=== PATIENT | male | born 1990 | race Caucasian/White ===

== ENCOUNTER 2017-06-25 17:16 | Observation (INO) | payer MEDICAID ==
[~2017-06-25] VITALS: Ht 182.9 cm; Wt 85.8 kg
[~2017-06-25 17:16] MED LIST: CARA1TAB2 PO; CHLO25CA PO; OMEP20CA5 PO; ZOFR4TAB3 SL
[2017-06-25] MEDS ORDERED: SODIUM CHLOR 0.9% 1000 ML INJ 1,000 ML IV SCH ×2 (17:26→20:15)
[2017-06-25] MEDS ORDERED: MORPHINE SULFATE 4 MG/ML INJ IV PUSH ONE ×2 (17:30→20:15)
[2017-06-25] MEDS ORDERED: ONDANSETRON HCL 4 MG/2 ML VIAL IVP ONE (17:30)
[2017-06-25] MEDS ORDERED: SODIUM CHLORIDE 0.9% FLUSH 10 ML FLUSH IV FLUSH PRN ×2 (17:30→20:30)
--- NOTE | 2017-06-25 17:31 | PD ---
HPI Chief Complaint: Abdominal pain Time Seen by Provider: 17:21 Travel History International Travel<30 days: No Contact w/Intl Traveler<30days: No Traveled to known affect area: No History of Present Illness HPI This patient complains of abdominal pain. Location is epigastrium. It started when he woke up this morning. Gradually worsened throughout the day. Duration is one day. He reports that he used to be a very heavy alcohol drinker but quit 2 weeks ago. No fall or injury. Denies fever or cough or shortness of breath. Symptoms are severe. No alleviating factors. No exacerbating factors. No abdominal surgeries. He denies medical history. PFSH Past Medical History Diminished Hearing: No Social History Alcohol Use: Yes (EVERY DAY) Tobacco Use: No Allergies-Medications (Allergen,Severity, Reaction): Coded Allergies: No Known Allergies (Verified , 06/19/13) Reported Meds & Prescriptions Reported Meds & Active Scripts Active No Active Prescriptions or Reported Medications Review of Systems General / Constitutional: No: Fever Eyes: No: Visual changes HENT: No: Headaches Cardiovascular: Positive: Tachycardia, No: Palpitations Respiratory: No: Shortness of Breath Gastrointestinal: Positive: Nausea, Abdominal Pain Genitourinary: No: Dysuria Musculoskeletal: No: Pain Skin: No Rash Neurologic: No: Weakness Psychiatric: No: Depression Endocrine: No: Polydipsia Hematologic/Lymphatic: No: Easy Bruising Physical Exam Narrative GENERAL: Well-nourished, well-developed patient with epigastric pain SKIN: Focused skin assessment reveals no rash and nodules. Skin is Warm and dry. HEAD: Atraumatic. Normocephalic. EYES: Pupils equal and round. No scleral icterus. No injection or drainage. ENT: No nasal bleeding or discharge. Mucous membranes pink and moist. NECK: Trachea midline. No JVD. CARDIOVASCULAR: Regular rate and rhythm. No murmur appreciated. RESPIRATORY: No accessory muscle use. Clear to auscultation. Breath sounds equal bilaterally. GASTROINTESTINAL: Abdomen soft, epigastrium is tender without rebound or guarding. Hepatic and splenic margins not palpable. MUSCULOSKELETAL: No obvious deformities. No clubbing. No cyanosis. No edema. NEUROLOGICAL: Awake and alert. No obvious cranial nerve deficits. Motor grossly within normal limits. Normal speech. PSYCHIATRIC: Appropriate mood and affect; insight and judgment normal. Data Data Last Documented VS Vital Signs Date Time Temp Pulse Resp B/P (MAP) Pulse Ox O2 Delivery O2 Flow Rate FiO2 06/25/17:18 86 16 144/66 (92) 100 Room Air 06/25/17 17:40 98.5 Orders Orders Complete Blood Count With Diff (06/25/17:) Comprehensive Metabolic Panel (06/25/17:) Lipase (06/25/17:) Prothrombin Time / Inr (Pt) (06/25/17:) Act Partial Throm Time (Ptt) (06/25/17:) Ct Abd/Pel W Iv Contrast(Rout) (06/25/17:) Iv Access Insert/Monitor (06/25/17) Ecg Monitoring (06/25/17) Oximetry (06/25/17:) NPO (06/25/17:) Morphine Inj (Morphine Inj) (06/25/17:30) Ondansetron Inj (Zofran Inj) (06/25/17:30) Sodium Chlor 0.9% 1000 Ml Inj (Ns 1000 M (06/25/17:) Sodium Chloride 0.9% Flush (Ns Flush) (06/25/17:30) Electrocardiogram (06/25/17:) Abdomen, Upright Only (06/25/17:) Chest, Single Ap (06/25/17:26) Alcohol (Ethanol) (06/25/17:26) Labs Laboratory Tests Test 06/25/17 17:32 White Blood Count 16.3 TH/MM3 Red Blood Count 5.58 MIL/MM3 Hemoglobin 16.1 GM/DL Hematocrit 47.2 % Mean Corpuscular Volume 84.6 FL Mean Corpuscular Hemoglobin 28.8 PG Mean Corpuscular Hemoglobin Concent 34.1 % Red Cell Distribution Width 12.1 % Platelet Count 275 TH/MM3 Mean Platelet Volume 8.0 FL Neutrophils (%) (Auto) 73.5 % Lymphocytes (%) (Auto) 14.3 % Monocytes (%) (Auto) 8.0 % Eosinophils (%) (Auto) 1.7 % Basophils (%) (Auto) 2.5 % Neutrophils # (Auto) 12.0 TH/MM3 Lymphocytes # (Auto) 2.3 TH/MM3 Monocytes # (Auto) 1.3 TH/MM3 Eosinophils # (Auto) 0.3 TH/MM3 Basophils # (Auto) 0.4 TH/MM3 CBC Comment DIFF FINAL Differential Comment Prothrombin Time 10.1 SEC Prothromb Time International Ratio 1.0 RATIO Activated Partial Thromboplast Time 23.3 SEC Blood Urea Nitrogen 11 MG/DL Creatinine 1.20 MG/DL Random Glucose 111 MG/DL Total Protein 8.5 GM/DL Albumin 4.1 GM/DL Calcium Level 9.3 MG/DL Alkaline Phosphatase 81 U/L Aspartate Amino Transf (AST/SGOT) 17 U/L Alanine Aminotransferase (ALT/SGPT) 28 U/L Total Bilirubin 0.8 MG/DL Sodium Level 137 MEQ/L Potassium Level 3.0 MEQ/L Chloride Level 102 MEQ/L Carbon Dioxide Level 21.8 MEQ/L Anion Gap 13 MEQ/L Estimat Glomerular Filtration Rate 73 ML/MIN Lipase 474 U/L Ethyl Alcohol Level LESS THAN 3 MG/DL MDM Medical Decision Making Medical Screen Exam Complete: Yes Emergency Medical Condition: Yes Medical Record Reviewed: Yes Differential Diagnosis Peptic ulcer disease, pancreatitis, perforated viscus, cholecystitis Narrative Course I have reviewed the patient's electronic medical record. IV placed and IV fluids started as well as Zofran and morphine for symptom relief I have ordered upright abdominal film and chest x-ray to evaluate for free air under the diaphragm Labs and CT ordered CBC shows leukocytosis of 16,000 Is hypokalemic at 3.0 Lipase is 474 Alcohol is negative I am awaiting CT of abdomen and pelvis. This will be crucial to determining disposition. We will have Dr. Whitfield check this and assist with disposition Diagnosis Primary Impression: Epigastric pain Scripts No Active Prescriptions or Reported Meds Yasmani Sanchez MD Jun 25, 2017 17:31
[2017-06-25 17:40] VITALS: BP 137/85; PULSE 114; RESP 22; TEMP 98.5; O2SAT 100
[2017-06-25 17:52] LABS: BASOPHIL # 0.4 TH/MM3 (0-0.2); BASOPHIL % 2.5 % (0.0-2.0); EOSINOPHIL # 0.3 TH/MM3 (0-0.4); EOSINOPHIL % 1.7 % (0.0-4.0); HEMATOCRIT 47.2 % (39.0-51.0); HEMOGLOBIN 16.1 GM/DL (13.0-17.0); LYMPH % 14.3 % (9.0-44.0); LYMPHOCYTE # 2.3 TH/MM3 (1.0-4.8); MEAN CELL VOLUME 84.6 FL (80.0-100.0); MEAN CORPUSCULAR HEMOGLOBIN 28.8 PG (27.0-34.0); MEAN CORPUSCULAR HGB CONC 34.1 % (32.0-36.0); MONOCYTE # 1.3 TH/MM3 (0-0.9); NEUT % 73.5 % (16.0-70.0); PLATELET COUNT 275 TH/MM3 (150-450); RED BLOOD COUNT 5.58 MIL/MM3 (4.50-5.90); RED CELL DISTRIBUTION WIDTH 12.1 % (11.6-17.2); WHITE BLOOD COUNT 16.3 TH/MM3 (4.0-11.0)
--- NOTE | 2017-06-25 17:52 | RADRPT ---
EXAM DATE/TIME: 06/25/2017 17:31 [facility] COMPARISON: No previous studies available for comparison. INDICATIONS : Sudden onset of chest pain, short of breath, numbness to hands, abdomen pain MEDICAL HISTORY : None. SURGICAL HISTORY : None. ENCOUNTER: Initial ACUITY: 1 day PAIN SCORE: 8/10 LOCATION: Bilateral chest FINDINGS: A single view of the chest demonstrates the lungs to be symmetrically aerated without evidence of mas s, infiltrate or effusion. The cardiomediastinal contours are unremarkable. Osseous structures are intact. CONCLUSION: No acute disease. Moustapha Milian MD on June 25, 2017 at 17:50 Board Certified Radiologist. This report was verified electronically.
--- NOTE | 2017-06-25 17:52 | RADRPT ---
EXAM DATE/TIME: 06/25/2017 17:31 [facility] COMPARISON: No previous studies available for comparison. INDICATIONS : Sudden onset of abdomen pain, short of breath, chest pain, numbness to hands MEDICAL HISTORY : None. SURGICAL HISTORY : None. ENCOUNTER: Initial ACUITY: 1 day PAIN SCORE: 8/10 LOCATION: Bilateral abdomen FINDINGS: A single erect view of the abdomen demonstrates the lower lungs to be clear. No evidence of free int raperitoneal gas. The visualized bowel loops are unremarkable. CONCLUSION: Normal examination. Moustapha Milian MD on June 25, 2017 at 17:50 Board Certified Radiologist. This report was verified electronically.
[2017-06-25 18:06] VITALS: O2SAT 98
[2017-06-25 18:06] LABS: CHLORIDE 102 MEQ/L (98-107); SODIUM (NA) 137 MEQ/L (136-145)
[2017-06-25 18:09] LABS: CALCIUM 9.3 MG/DL (8.5-10.1)
[2017-06-25 18:10] LABS: ALBUMIN 4.1 GM/DL (3.4-5.0); BICARBONATE 21.8 MEQ/L (21.0-32.0); BLOOD UREA NITROGEN 11 MG/DL (7-18); GLUCOSE,RANDOM 111 MG/DL (74-106)
[2017-06-25 18:12] LABS: ALT (GPT) 28 U/L (12-78)
[2017-06-25 18:13] LABS: AST (GOT) 17 U/L (15-37); GLOMERULAR FILTRATION RATE 73 ML/MIN (>89); PROTHROMBIN TIME - PATIENT 10.1 SEC (9.8-11.6)
[2017-06-25 18:14] LABS: TOTAL BILIRUBIN ADULT 0.8 MG/DL (0.2-1.0); TOTAL PROTEIN 8.5 GM/DL (6.4-8.2)
[2017-06-25 18:15] LABS: ALKALINE PHOSPHATASE 81 U/L (45-117)
[2017-06-25 18:18] VITALS: BP 144/66; PULSE 86; RESP 16; O2SAT 100
[2017-06-25 19:03] VITALS: BP 137/74; PULSE 89; RESP 16; O2SAT 100
--- NOTE | 2017-06-25 19:34 | RADRPT ---
EXAM DATE/TIME: 06/25/2017 19:06 [facility] COMPARISON: ABDOMEN UPRIGHT ONLY, June 25, 2017, 17:31. CHEST SINGLE AP, June 25, 2017, 17:31. INDICATIONS : Abdomen pain. IV CONTRAST: 100 cc Omnipaque 350 (iohexol) IV ORAL CONTRAST: No oral contrast ingested. RADIATION DOSE: 9.96 CTDIvol (mGy) MEDICAL HISTORY : None SURGICAL HISTORY : None. ENCOUNTER: Initial ACUITY: 1 day PAIN SCALE: 6/10 LOCATION: Bilateral abdomen TECHNIQUE: Volumetric scanning of the abdomen and pelvis was performed. Using automated exposure control and ad justment of the mA and/or kV according to patient size, radiation dose was kept as low as reasonably achievable to obtain optimal diagnostic quality images. DICOM format image data is available electro nically for review and comparison. FINDINGS: LOWER LUNGS: The visualized lower lungs are clear. LIVER: Homogeneous density without lesion. There is no dilation of the biliary tree. No calcified gallston es. SPLEEN: Normal size without lesion. PANCREAS: Within normal limits. KIDNEYS: Normal in size and shape. There is no mass, stone or hydronephrosis. ADRENAL GLANDS: Within normal limits. VASCULAR: There is no aortic aneurysm. BOWEL/MESENTERY: The stomach, small bowel, and colon demonstrate no acute abnormality. There is no free intraperitone al air or fluid. The appendix well-visualized, normal. ABDOMINAL WALL: Within normal limits. RETROPERITONEUM: There is no lymphadenopathy. BLADDER: No wall thickening or mass. REPRODUCTIVE: Within normal limits. INGUINAL: There is no lymphadenopathy or hernia. MUSCULOSKELETAL: Within normal limits for patient age. CONCLUSION: Normal CT of the abdomen and pelvis. Moustapha Sanchez MD on June 25, 2017 at 19:31 Board Certified Radiologist. This report was verified electronically.
--- NOTE | 2017-06-25 20:05 | PD ---
Physical Exam Time Seen by Provider: 20:02 Narrative The patient was given to me by Dr. Sanchez to make a disposition after reviewing the CAT scan. The patient is a heavy drinker and quit 3 days ago. Data Data Last Documented VS Vital Signs Date Time Temp Pulse Resp B/P (MAP) Pulse Ox O2 Delivery O2 Flow Rate FiO2 06/25/17 19:03 89 16 137/74 (95) 100 Room Air 06/25/17 17:40 98.5 Orders Orders Complete Blood Count With Diff (06/25/17:) Comprehensive Metabolic Panel (06/25/17) Lipase (06/25/17:) Prothrombin Time / Inr (Pt) (06/25/17) Act Partial Throm Time (Ptt) (06/25/17) Ct Abd/Pel W Iv Contrast(Rout) (06/25/17) Iv Access Insert/Monitor (06/25/17) Ecg Monitoring (06/25/17) Oximetry (06/25/17) NPO (06/25/17:) Morphine Inj (Morphine Inj) (06/25/17 17:30) Ondansetron Inj (Zofran Inj) (06/25/17 17:30) Sodium Chlor 0.9% 1000 Ml Inj (Ns 1000 M (06/25/17:) Sodium Chloride 0.9% Flush (Ns Flush) (06/25/17 17:30) Electrocardiogram (06/25/17:) Abdomen, Upright Only (06/25/17:) Chest, Single Ap (06/25/17:) Alcohol (Ethanol) (06/25/17:) Labs Laboratory Tests Test 06/25/17 17:32 White Blood Count 16.3 TH/MM3 Red Blood Count 5.58 MIL/MM3 Hemoglobin 16.1 GM/DL Hematocrit 47.2 % Mean Corpuscular Volume 84.6 FL Mean Corpuscular Hemoglobin 28.8 PG Mean Corpuscular Hemoglobin Concent 34.1 % Red Cell Distribution Width 12.1 % Platelet Count 275 TH/MM3 Mean Platelet Volume 8.0 FL Neutrophils (%) (Auto) 73.5 % Lymphocytes (%) (Auto) 14.3 % Monocytes (%) (Auto) 8.0 % Eosinophils (%) (Auto) 1.7 % Basophils (%) (Auto) 2.5 % Neutrophils # (Auto) 12.0 TH/MM3 Lymphocytes # (Auto) 2.3 TH/MM3 Monocytes # (Auto) 1.3 TH/MM3 Eosinophils # (Auto) 0.3 TH/MM3 Basophils # (Auto) 0.4 TH/MM3 CBC Comment DIFF FINAL Differential Comment Prothrombin Time 10.1 SEC Prothromb Time International Ratio 1.0 RATIO Activated Partial Thromboplast Time 23.3 SEC Blood Urea Nitrogen 11 MG/DL Creatinine 1.20 MG/DL Random Glucose 111 MG/DL Total Protein 8.5 GM/DL Albumin 4.1 GM/DL Calcium Level 9.3 MG/DL Alkaline Phosphatase 81 U/L Aspartate Amino Transf (AST/SGOT) 17 U/L Alanine Aminotransferase (ALT/SGPT) 28 U/L Total Bilirubin 0.8 MG/DL Sodium Level 137 MEQ/L Potassium Level 3.0 MEQ/L Chloride Level 102 MEQ/L Carbon Dioxide Level 21.8 MEQ/L Anion Gap 13 MEQ/L Estimat Glomerular Filtration Rate 73 ML/MIN Lipase 474 U/L Ethyl Alcohol Level LESS THAN 3 MG/DL [facility] Medical Record Reviewed: Yes Supervised Visit with ANNMARIE: No Interpretation(s) The CT abdomen/pelvis with IV contrast is normal. The GFR is 73 and the total protein is 8.5 and the potassium is 3.0 and the rest of the complete metabolic profile is normal. The alcohol level is essentially 0. The lipase is 474. The CBC shows a white count of 16,300 but is otherwise unremarkable. Differential Diagnosis Gastritis, pancreatitis, dehydration, electrolyte disorder, colitis Diagnosis Primary Impression: Epigastric pain Scripts No Active Prescriptions or Reported Juancho Tom MD Jun 25, 2017 20:05
[2017-06-25] MEDS ORDERED: ONDANSETRON HCL 4 MG/2 ML VIAL IV ONE (20:15)
[2017-06-25] MEDS ORDERED: HALOPERIDOL LACTATE 5 MG/ML AMP IM PRN (20:30)
[2017-06-25] MEDS ORDERED: FLUMAZENIL 0.5 MG/5 ML VIAL IV PUSH PRN (20:30)
[2017-06-25] MEDS ORDERED: LORazepam 2 MG/ML VIAL IV PUSH PRN ×4 (20:30)
[2017-06-25] MEDS ORDERED: BISACODYL 10 MG SUPP RECTAL PRN (20:30)
[2017-06-25] MEDS ORDERED: LACTULOSE SYRUP 20 GM/30 ML CUP PO PRN (20:30)
[2017-06-25] MEDS ORDERED: MAGNESIUM HYDROXIDE SUSP 30 ML CUP PO PRN (20:30)
[2017-06-25] MEDS ORDERED: LORazepam 1 MG TAB PO PRN (20:30)
[2017-06-25] MEDS ORDERED: FAMOTIDINE 20 MG/2 ML VIAL IV PUSH SCH (20:30)
[2017-06-25] MEDS ORDERED: SENNOSIDES 8.6 MG TAB PO PRN (20:30)
[2017-06-25] MEDS ORDERED: LORazepam 2 MG TAB PO PRN (20:30)
[2017-06-25] MEDS ORDERED: THIAMINE INJ 100 MG in SODIUM CHLORIDE 0.9% INJ 100 ML IV ONE (21:00)
[2017-06-25] MEDS: DOCUSATE SODIUM 50 MG/SENNA 8.6 MG TAB PO SCH (21:00)
[2017-06-25 22:16] VITALS: BP 134/69; PULSE 104; RESP 18; TEMP 97.4; O2SAT 97
[2017-06-25] MEDS: SODIUM CHLOR 0.9% 1000 ML INJ 1,000 ML IV SCH (23:09)
[2017-06-25] MEDS: SODIUM CHLORIDE 0.9% FLUSH 10 ML FLUSH IV FLUSH SCH (23:09)
[2017-06-25] MEDS ORDERED: IOHEXOL 350 MG/ML 10 ML VIAL (for RAD DIAG) IVCONTRAST ONE (23:21)
[2017-06-26] MEDS: ONDANSETRON HCL 4 MG/2 ML VIAL IVP PRN ×3 (01:26→18:30)
[2017-06-26] MEDS: MORPHINE SULFATE 2 MG/ML SYRINGE IV PUSH PRN ×2 (01:28→08:02)
[2017-06-26] MEDS: ACETAMINOPHEN 325 MG TAB PO PRN ×2 (04:58→14:42)
[2017-06-26] MEDS: SODIUM CHLOR 0.9% 1000 ML INJ 1,000 ML IV SCH ×2 (06:28→16:28)
[2017-06-26 08:00] VITALS: BP 117/76; PULSE 80; RESP 16; TEMP 97.9; O2SAT 99
[2017-06-26] MEDS: DOCUSATE SODIUM 50 MG/SENNA 8.6 MG TAB PO SCH ×3 (08:05→21:00)
[2017-06-26] MEDS: FOLIC ACID 1 MG TAB PO SCH ×2 (08:05→09:32)
[2017-06-26] MEDS: MULTIVITAMINS/MINERALS THERAPEUTIC TAB PO SCH ×2 (08:05→09:32)
[2017-06-26] MEDS: THIAMINE HCL 100 MG TAB PO SCH ×2 (08:06→09:32)
[2017-06-26 08:11] LABS: BASOPHIL % 0.3 % (0.0-2.0); EOSINOPHIL # 0.1 TH/MM3 (0-0.4); LYMPH % 12.5 % (9.0-44.0); LYMPHOCYTE # 1.3 TH/MM3 (1.0-4.8); MEAN CELL VOLUME 85.3 FL (80.0-100.0); MEAN CORPUSCULAR HGB CONC 34.1 % (32.0-36.0); MEAN PLATELET VOLUME 7.8 FL (7.0-11.0); MONO % 8.5 % (0.0-8.0); MONOCYTE # 0.9 TH/MM3 (0-0.9); NEUT % 77.7 % (16.0-70.0); PLATELET COUNT 197 TH/MM3 (150-450); RED BLOOD COUNT 4.81 MIL/MM3 (4.50-5.90); RED CELL DISTRIBUTION WIDTH 12.7 % (11.6-17.2); WHITE BLOOD COUNT 10.3 TH/MM3 (4.0-11.0)
[2017-06-26 08:26] LABS: ALBUMIN 3.1 GM/DL (3.4-5.0); ALKALINE PHOSPHATASE 61 U/L (45-117); ALT (GPT) 19 U/L (12-78); AST (GOT) 11 U/L (15-37); BLOOD UREA NITROGEN 11 MG/DL (7-18); CALCIUM 8.2 MG/DL (8.5-10.1); CHLORIDE 108 MEQ/L (98-107); GLOMERULAR FILTRATION RATE 73 ML/MIN (>89); GLUCOSE,RANDOM 98 MG/DL (74-106); SODIUM (NA) 142 MEQ/L (136-145); TOTAL BILIRUBIN ADULT 0.8 MG/DL (0.2-1.0); TOTAL PROTEIN 6.7 GM/DL (6.4-8.2)
[2017-06-26] MEDS ORDERED: ALUMINUM/MAGNESIUM/SIMETH 30 ML CUP PO ONE (08:45)
[2017-06-26] MEDS: SODIUM CHLORIDE 0.9% FLUSH 10 ML FLUSH IV FLUSH SCH ×2 (09:00→21:00)
[2017-06-26] MEDS: PANTOPRAZOLE SOD 40 MG DELAYED RELEASE TAB PO SCH (09:32)
--- NOTE | 2017-06-26 09:41 | HHI.HP ---
[facility] Service [facility] Primary Care Physician No Primary Care Physician Admission Diagnosis Diagnoses: Chief Complaint: Abdominal pain Travel History International Travel<30 Days: No Contact w/Intl Traveler <30 Da: No Traveled to Known Affected Are: No History of Present Illness 27-year-old white male being admitted for intractable abdominal pain Patient was in his usual state of health until early yesterday morning when he woke up with abdominal pain and nausea. Had multiple episodes of dry heaves but no vida emesis. Abdominal pain radiated up into his chest, will was a 10 out of 10 at its worst. Says he took some Excedrin. Also developed a headache with some photophobia, felt weak all throughout with some nonspecific diffuse numbness and tingling everywhere but no vida fevers or chills. Denies having any diarrhea or change in bowel habits. Thus he decided come to the emergency department. In the emergency department, patient had an abdominal CT done which was overall unremarkable. Lipase was noted to be elevated in the 400s. Patient was started on IV fluids. His headache had improved as well as his nausea and vomiting. Review of Systems Except as stated in HPI: all other systems reviewed are Neg Past Family Social History Past Medical History None per patient Past Surgical History None per patient Allergies: Coded Allergies: No Known Allergies (Verified Allergy, Unknown, 06/25/17) Family History Family history of diabetes Social History Says he stopped smoking about 7-8 years ago. Reports drinking 1-2 beers now about every other day. Says he used to drink about a pack a day up until about a month ago. Physical Exam Vital Signs Vital Signs Date Time Temp Pulse Resp B/P (MAP) Pulse Ox O2 Delivery O2 Flow Rate FiO2 06/25/17 22:16 97.4 104 18 134/69 (90) 97 06/25/17 19:03 89 16 137/74 (95) 100 Room Air 06/25/17 18:18 86 16 144/66 (92) 100 Room Air 06/25/17 18:06 98 Room Air 06/25/17 17:40 98.5 114 22 137/85 (102) 100 Physical Exam VS: afebrile GENERAL: Lying in bed, awake, alert, no acute distress SKIN: Warm and dry. EYES: No scleral icterus. No injection or drainage. ENT: No nasal bleeding or discharge. Mucous membranes pink and moist. CARDIOVASCULAR: Regular rate and rhythm. no murmurs RESPIRATORY: No accessory muscle use. Clear to auscultation. Breath sounds equal bilaterally. GASTROINTESTINAL: Abdomen soft, non-tender, nondistended. Extremities: No clubbing, cyanosis, or edema. No obvious deformities. MUSCULOSKELETAL: adequate muscle bulk and tone for age and habitus NEUROLOGICAL: Awake and alert. No obvious cranial nerve deficits. No facial droop nor slurred speech noted. PSYCHIATRIC: Appropriate mood and affect; insight and judgment normal. Laboratory Laboratory Tests Test 06/25/17 17:32 06/26/17 07:15 White Blood Count 16.3 10.3 Red Blood Count 5.58 4.81 Hemoglobin 16.1 14.0 Hematocrit 47.2 41.0 Mean Corpuscular Volume 84.6 85.3 Mean Corpuscular Hemoglobin 28.8 29.0 Mean Corpuscular Hemoglobin Concent 34.1 34.1 Red Cell Distribution Width 12.1 12.7 Platelet Count 275 197 Mean Platelet Volume 8.0 7.8 Neutrophils (%) (Auto) 73.5 77.7 Lymphocytes (%) (Auto) 14.3 12.5 Monocytes (%) (Auto) 8.0 8.5 Eosinophils (%) (Auto) 1.7 1.0 Basophils (%) (Auto) 2.5 0.3 Neutrophils # (Auto) 12.0 8.0 Lymphocytes # (Auto) 2.3 1.3 Monocytes # (Auto) 1.3 0.9 Eosinophils # (Auto) 0.3 0.1 Basophils # (Auto) 0.4 0.0 CBC Comment DIFF FINAL DIFF FINAL Differential Comment Prothrombin Time 10.1 Prothromb Time International Ratio 1.0 Activated Partial Thromboplast Time 23.3 Blood Urea Nitrogen 11 11 Creatinine 1.20 1.20 Random Glucose 111 98 Total Protein 8.5 6.7 Albumin 4.1 3.1 Calcium Level 9.3 8.2 Alkaline Phosphatase 81 61 Aspartate Amino Transf (AST/SGOT) 17 11 Alanine Aminotransferase (ALT/SGPT) 28 19 Total Bilirubin 0.8 0.8 Sodium Level 137 142 Potassium Level 3.0 4.2 Chloride Level 102 108 Carbon Dioxide Level 21.8 28.0 Anion Gap 13 6 Estimat Glomerular Filtration Rate 73 73 Lipase 474 128 Ethyl Alcohol Level LESS THAN 3 Result Diagram: 06/26/1715 06/26/17 0715 Imaging Last Impressions Chest X-Ray 06/25/171725 Signed Impressions: Service Date/Time: Sunday, June 25, 2017 17:31 - CONCLUSION: No acute disease. Moustapha Milian MD Abdomen/Pelvis CT 06/25/171725 Signed Impressions: Service Date/Time: Sunday, June 25, 2017 19:06 - CONCLUSION: Normal CT of the abdomen and pelvis. Moustapha Sanchez MD Abdomen X-Ray 06/25/171725 Signed Impressions: Service Date/Time: Sunday, June 25, 2017 17:31 - CONCLUSION: Normal examination. MD Ra Grijalva VTE Risk Assessment Caprini VTE Risk Assessment: No/Low Risk (score <= 1) Caprini Risk Assessment Model Point Value = 1 Point Value = 2 Point Value = 3 Point Value = 5 Age 41-60 Minor surgery BMI > 25 kg/m2 Swollen legs Varicose veins or History of unexplained or recurrent spontaneous Oral contraceptives or hormone replacement Sepsis (< 1 month) Serious lung disease, including pneumonia (< 1 month) Abnormal pulmonary function Acute myocardial infarction Congestive heart failure (< 1 month) History of inflammatory bowel disease Medical patient at bed rest Age 61-74 Arthroscopic surgery Major open surgery (> 45 min) Laparoscopic surgery (> 45 min) Malignancy Confined to bed (> 72 hours) Immobilizing plaster cast Central venous access Age >= 75 History of VTE Family history of VTE Factor V Leiden Prothrombin [id number] Lupus anticoagulant Anticardiolipin antibodies Elevated serum homocysteine Heparin-induced thrombocytopenia Other congenital or acquired thrombophilia Stroke (< 1 month) Elective arthroplasty Hip, pelvis, or leg fracture Acute spinal cord injury (< 1 month) Prophylaxis Regimen Total Risk Factor Score Risk Level Prophylaxis Regimen 0-1 Low Early ambulation 2 Moderate Order ONE of the following: *Sequential Compression Device (SCD) *Heparin 5000 units SQ BID 3-4 Higher Order ONE of the following medications: *Heparin 5000 units SQ TID *Enoxaparin/Lovenox 40 mg SQ daily (WT < 150 kg, CrCl > 30 mL/min) *Enoxaparin/Lovenox 30 mg SQ daily (WT < 150 kg, CrCl > 10-29 mL/min) *Enoxaparin/Lovenox 30 mg SQ BID (WT < 150 kg, CrCl > 30 mL/min) AND/OR *Sequential Compression Device (SCD) 5 or more Highest Order ONE of the following medications: *Heparin 5000 units SQ TID (Preferred with Epidurals) *Enoxaparin/Lovenox 40 mg SQ daily (WT < 150 kg, CrCl > 30 mL/min) *Enoxaparin/Lovenox 30 mg SQ daily (WT < 150 kg, CrCl > 10-29 mL/min) *Enoxaparin/Lovenox 30 mg SQ BID (WT < 150 kg, CrCl > 30 mL/min) AND *Sequential Compression Device (SCD) Assessment and Plan Assessment and Plan 27-year-old white male admitted for abdominal pain and nausea Abdominal pain -Much improved -Mildly elevated lipase indicative more so of enteritis//colitis but not pancreatitis. Etiologies include viral gastroenteritis versus alcoholic gastritis versus food poisoning -Supportive care with IV fluids as well as Protonix and Mylanta; clear liquid trial today; avoid NSAIDs Nausea -Likely secondary to above as well as possible marijuana induced nausea -Zofran as needed Carlos Randall MD Jun 26, 2017 09:41
[2017-06-26] MEDS ORDERED: ONDANSETRON ODT 4 MG TAB PO PRN (09:45)
[2017-06-26 13:00] VITALS: BP 141/65; PULSE 80; RESP 17; TEMP 96; O2SAT 100
[2017-06-26 16:00] VITALS: BP 117/59; PULSE 73; RESP 15; TEMP 99; O2SAT 99
--- NOTE | 2017-06-26 16:02 | EKG ---
Date Performed: 06/25/2017 Time Performed: 17:20:04 PTAGE: 27 years EKG: SINUS TACHYCARDIA Baseline artifact ABNORMAL RHYTHM ECG NO PREVIOUS TRACING DOCTOR: Ting Duarte Interpretating Date/Time 06/26/2017 16:01:38
[2017-06-26 17:50] VITALS: RESP 18
[2017-06-26] MEDS ORDERED: ONDANSETRON HCL 4 MG/2 ML VIAL IVP PRN (18:45)
[2017-06-26 19:35] VITALS: BP 121/64; PULSE 80; RESP 18; TEMP 98.2; O2SAT 99
[2017-06-27 01:25] VITALS: BP 118/63; PULSE 70; RESP 18; TEMP 97; O2SAT 98
[2017-06-27] MEDS: SODIUM CHLOR 0.9% 1000 ML INJ 1,000 ML IV SCH ×2 (05:04→12:28)
[2017-06-27 08:00] VITALS: BP 130/78; PULSE 74; RESP 14; TEMP 96.3; O2SAT 98
[2017-06-27] MEDS: SODIUM CHLORIDE 0.9% FLUSH 10 ML FLUSH IV FLUSH SCH (09:00)
[2017-06-27] MEDS: DOCUSATE SODIUM 50 MG/SENNA 8.6 MG TAB PO SCH (09:00)
--- NOTE | 2017-06-27 09:14 | HHI.PR ---
Subjective Remarks Follow-up abdominal pain and nausea. Patient seen and examined, lying in bed comfortably no apparent distress. Patient tolerated clear liquid diet without any nausea or vomiting. Will attempt to advance diet later this afternoon and possible discharge if patient tolerating well. Continue IV fluids for now. Vital signs are stable. Afebrile. Objective Vitals Vital Signs Date Time Temp Pulse Resp B/P (MAP) Pulse Ox O2 Delivery O2 Flow Rate FiO2 06/27/17 01:25 97.0 70 18 118/63 (81) 98 06/26/17 19:35 98.2 80 18 121/64 (83) 99 06/26/17 17:50 18 06/26/17 16:00 99.0 73 15 117/59 (78) 99 06/26/17 13:00 96.0 80 17 141/65 (90) 100 I/O 06/26/17 06/26/17 06/26/17 06/27/17 06/27/17 06/27/17 07:00 15:00 23:00 07:00 15:00 23:00 Intake Total 800 ml 340 ml 1200 ml Output Total 1 ml Balance 800 ml 339 ml 1200 ml Intake Oral 0 ml 340 ml IV Total 800 ml 1200 ml Output Stool Total 1 ml # Voids 2 3 2 # Bowel Movements 0 Result Diagram: 06/26/1715 06/26/17714 Imaging Last Impressions Chest X-Ray 06/25/171725 Signed Impressions: Service Date/Time: Sunday, June 25, 2017 17:31 - CONCLUSION: No acute disease. Moustapha Milian MD Abdomen/Pelvis CT 06/25/171725 Signed Impressions: Service Date/Time: Sunday, June 25, 2017 19:06 - CONCLUSION: Normal CT of the abdomen and pelvis. Moustapha Sanchez MD Abdomen X-Ray 06/25/171725 Signed Impressions: Service Date/Time: Sunday, June 25, 2017 17:31 - CONCLUSION: Normal examination. Moustapha Milian MD Objective Remarks GENERAL: Well-developed, well-nourished patient in NAD. SKIN: Warm and dry. No rash. HEAD: Normocephalic. Atraumatic. EYES: Pupils equal and round. No scleral icterus. No injection or drainage. ENT: No nasal bleeding or discharge. Mucous membranes pink and moist. NECK: Supple. Trachea midline. CARDIOVASCULAR: Regular rate and rhythm. S1, S2 noted. No murmur appreciated. RESPIRATORY: No accessory muscle use. Clear to auscultation. Breath sounds equal bilaterally. GASTROINTESTINAL: Abdomen soft, non-tender, nondistended. Normoactive bowel sounds x4. MUSCULOSKELETAL: No obvious deformities. Extremities without clubbing, cyanosis , or edema. NEUROLOGICAL: Awake and alert. No obvious cranial nerve deficits. Motor grossly within normal limits. 5/5 muscle strength in bilateral upper and lower extremities. Normal speech. PSYCHIATRIC: Appropriate mood and affect; insight and judgment normal. A/P Assessment and Plan 27-year-old white male admitted for abdominal pain and nausea. Abdominal pain, improved. With associated nausea - Mildly elevated lipase indicative more so of enteritis//colitis but not pancreatitis. Etiologies include viral gastroenteritis versus alcoholic gastritis versus food poisoning. Lipase normal today. - Supportive care with IV fluids as well as Protonix and Mylanta; avoid NSAIDs. Advance diet as tolerated today. - Zofran as needed for nausea. - Nausea may be possibly marijuana induced. Advised on cessation. Discharge Planning Possible discharge later today if tolerating p.o. intake well. Lucy Byers Jun 27, 2017 09:14
[2017-06-27] MEDS: MULTIVITAMINS/MINERALS THERAPEUTIC TAB PO SCH (09:17)
[2017-06-27] MEDS: PANTOPRAZOLE SOD 40 MG DELAYED RELEASE TAB PO SCH (09:17)
[2017-06-27] MEDS: FOLIC ACID 1 MG TAB PO SCH (09:17)
--- NOTE | 2017-06-27 10:48 | HHI.DCPOC ---
Discharge Care Plan Diagnosis: (1) Epigastric pain Goals to Promote Your Health * To prevent worsening of your condition and complications * To maintain your health at the optimal level Directions to Meet Your Goals Take your medications as prescribed Follow your dietary instruction Follow activity as directed Keep your appointments as scheduled Take your immunizations and boosters as scheduled If your symptoms worsen call your PCP, if no PCP go to Urgent Care Center or Emergency Room Smoking is Dangerous to Your Health. Avoid second hand smoke Call the 24-hour hour crisis hotline for domestic abuse at Lucy Byers Jun 27, 2017 10:48
[2017-06-27] MEDS ORDERED: PANT40TA3 PO (10:50)
[2017-06-27] MEDS ORDERED: FOLI1TAB6 PO (10:50)
[2017-06-27] MEDS ORDERED: ONDA4TAB7 PO (10:50)
[2017-06-27] MEDS ORDERED: THERM PO (10:50)
[2017-06-27 12:00] VITALS: BP 139/76; PULSE 69; RESP 14; TEMP 96.2; O2SAT 98
== END 2017-06-27 14:42 | disposition home or self-care (01) ==
LOC: PHED 17:16 → PHEDA 20:31 → PH3A 22:10
PROVIDERS: ADMIT Hospitalist; ATTEND Hospitalist
DX: R10.9 Unspecified abdominal pain (principal); R74.8 Abnormal levels of other serum enzymes; R51 Headache; H53.149 Visual discomfort, unspecified; R11.0 Nausea; R20.0 Anesthesia of skin; R00.0 Tachycardia, unspecified; E87.6 Hypokalemia; R94.31 Abnormal electrocardiogram [ECG] [EKG]; Z87.891 Personal history of nicotine dependence
CPT/HCPCS: 71045; 74018; 74177; 80053; 80307; 82948; 83690; 85025; 85610; 85730; 93005; 96361; 96365; 96374; 96375; 96376; 99285; G0378; J2270; J2405; J3411; J7030; Q9967